=== PATIENT | female | born 1970 | race Caucasian/White ===

== ENCOUNTER 2018-09-18 17:16 | Emergency (ER) | payer MEDICAID, BC ==
[2018-09-18 22:53] LABS: URINE BLOOD (Dip) POC Trace-lysed (NEGATIVE); URINE GLUCOSE (Dip) POC Negative (NEGATIVE); URINE KETONES (Dip) POC Negative (NEGATIVE); URINE LEUKOCYTE EST (Dip) POC Negative (NEGATIVE); URINE NITRITE (Dip) POC Negative (NEGATIVE); URINE TOTAL PROTEIN POC Negative (NEGATIVE)
[2018-09-18 22:53] LABS: URINE PH (Dip) POC 6.5 (5.0-8.5)
== END 2018-09-18 23:57 | disposition home or self-care (01) ==
LOC: FTE 17:16
DX: J20.9 Acute bronchitis, unspecified (principal); R30.0 Dysuria
CPT/HCPCS: 81003; 81025; 99283